=== PATIENT | female | born 1940 | race Caucasian/White ===

== ENCOUNTER 2025-07-18 08:17 | Outpatient (AMB) | payer OTHER, SELFPAY ==
--- NOTE | 2025-07-18 08:20 | MHC.PC.OV ---
Vital Signs 07/18/25 08:22 Height 5 ft 2 in Weight 123 lb BMI 22.5 BP 134/76 Blood Pressure Location Lt brachial Position Sitting Respiration 17 Pulse 56 Pulse Source Pulse Oximeter Temp 97.6 F Temp Source Oral Pulse Oximetry (%) 95 Oxygen Delivery Method Room Air Intake Visit Reasons: New pt visit Intake Note: Pt is here today for New patient visit. Allergies amlodipine (From [facility]) Allergy (Verified 07/18/25 08:24) swelling in legs Medication List - Last Reconciled 07/18/25 by Jeri Parsons MD albuterol sulfate 90 mcg/actuation (Ventolin HFA) 2 puffs inhalation Q6H PRN alendronate 70 mg PO QWEEK aspirin 81 mg PO DAILY azelastine-fluticasone 137-50 mcg/spray 1 spray intranasal BID cetirizine (Zyrtec) 10 mg PO DAILY PRN cyclosporine 50 mg PO DAILY estradiol 0.01%(0.1mg/gram) peasize to urethra vaginally daily; folic acid 3 mg PO DAILY losartan 12.5 mg PO DAILY methotrexate (PF) (Rasuvo (PF)) 25 mg subcut QWEEK metoprolol tartrate 25 mg PO DAILY nitroglycerin 0.4 mg sublingual Q5M PRN pravastatin 20 mg PO BEDTIME tolterodine ER 4 mg PO DAILY vitamin B complex 1 tab PO DAILY [vitamin K2 and Vitamin D PO] Tobacco use date assessed: 07/18/25 Fall risk assessment: No Falls in past year Last assessed Fall Risk: 07/18/25 Dental Screening Dental Screen Date: 07/18/25 Did you have a dental visit in the last 12 months?: Yes Did you have a dental problem in the last 6 months where you did not have access to dental care?: No Was dental information given to patient?: Patient has dentist HPI New pt visit HPI Details Patient presents for new patient visit. Past medical history includes hypertension hyperlipidemia coronary artery disease, s/p 2 stents placement in 2022, established with Cardiology. Patient has been physically active hiking 5 times a week with [employer] and denies chest pain shortness or breath palpitations PND orthopnea PFSH Medical History Allergies Hx of mammogram Pemphigoid Annual physical exam Asthma CAD (coronary artery disease) Surgical History (Updated 07/18/25 @ 08:35 by KARTHIK Kennedy) Hx of left knee surgery Hx of eye surgery Hx of cataract surgery Family History (Updated 07/18/25 @ 08:36 by KARTHIK Kennedy) Father Hypertension Mother Hypertension Social History (Updated 07/18/25 @ 09:08 by Jeri Parsons MD) Household Members Other:: single, retired teacher, hikes 3 x a week, sister in [place], [facility] Tobacco Use Status: Never used Tobacco e-Cigarette/Vaping Use: Never Used service: No Current occupational status: retired Cognitive needs: No Hearing needs: No Vision needs: No Questionnaire PHQ-9 Over the last 2 weeks, how often have you been bothered by any of the following problems? 1. Little interest or pleasure in doing things: not at all 2. Feeling down, depressed, or hopeless: not at all 3. Trouble falling or staying asleep, or sleeping too much: not at all 4. Feeling tired or having little energy: not at all 5. Poor appetite or overeating: not at all 6. Feeling bad about yourself - or that you are a failure or have let yourself or your family down: not at all 7. Trouble concentrating on things, such as reading the newspaper or watching television: not at all 8. Moving or speaking so slowly that other people could have noticed. Or the opposite - being so fidgety or restless that you have been moving around a lot more than usual: not at all 9. Thoughts that you would be better off or of hurting yourself in some way: not at all Total score: 0 Depression Screening Interpretation: Negative Depression Screening Done: Yes 48250 - PHQ-9 Billing: Yes Source: Developed by Drs. Vlad Mckeon, Aisha Carlton, Aman Avitia and colleagues, with an educational jenise from [employer]. Thrive Questionnaire I am a: Patient What is your living situation today?: I have a steady place to live Within the past 12 months, did the food you bought not last and you didn't have the money to get more?: Never true Within the past 12 months, did you worry whether your food would run out before you got money to buy more?: Never true Do you have trouble paying for medicines?: No Do you have trouble getting transportation to medical appointments?: No Do you have trouble paying your heating and electricity bill?: No Do you have trouble taking care of your child, family member or friend?: No Do you have trouble with day-to-day activities such as bathing, preparing meals, shopping, managing finances, etc.?: No Are you currently unemployed and looking for a job?: No Are you interested in more education?: No Please select the resources that you would like help with: None Currently or been in a relationship where the following occur: No concerns reported THRIVE Score: 0 AUDIT C Alcohol Use Questionnaire (AUDIT-C) 1. How often do you have a drink containing alcohol?: 2-3 times a week 2. How many drinks containing alcohol do you have on a typical day when you are drinking?: 1 or 2 3. How often do you have six or more drinks on one occasion?: Never Total Score: 3 ALBA-7 AMB Questionnaire ALBA-7 Feeling nervous, anxious, or on edge: 0 = Not at all Not being able to stop or control worryin = Not at all Worrying too much about different things: 0 = Not at all Trouble relaxin = Not at all Being so restless that it is hard to sit still: 0 = Not at all Becoming easily annoyed or irritable: 0 = Not at all Feeling afraid as if something awful might happen: 0 = Not at all Total ALBA-7 score (0-4 normal; 5-9 mild; 10-14 moderate; 15-21 severe): 0 Source: Developed by Drs. Vlad Mckeon, Aisha Carlton, Aman Avitia and colleagues, with an educational jenise from [employer]. Review of Systems Const All systems reviewed & are unremarkable except as noted in HPI and below Eyes Reports no additional complaints ENT Reports no additional complaints Card Reports no additional complaints Resp Reports no additional complaints GI Reports no additional complaints Reports no additional complaints Physical exam (Primary Care) Vital Signs: Last Vital Signs Temp 97.6 F 07/18/25 08:22 Pulse 56 07/18/25 08:22 Resp 17 07/18/25 08:22 BP 134/76 07/18/25 08:22 Pulse Ox 95 07/18/25 08:22 Oxygen Delivery Method Room Air 07/18/25 08:22 BMI result Body Mass Index 22.5 Tobacco/Smoking Status: Tobacco use Status Tobacco use date assessed 07/18/25 07/18/25 08:41 Patient Tobacco Use Status Never used Tobacco 07/18/25 08:41 e-Cigarette/Vaping Use Never Used 07/18/25 08:41 PHQ-9: PHQ-9 Score PHQ-9: Total score 0 07/18/25 08:22 Depression Screening Interpretation: Negative Currently or been in a relationship where the following occur: No concerns reported Const General: no acute distress HENMT Head: Yes normal to inspection Face and sinus: Yes normal facial exam Eyes General: appearance normal, both eyes and all related structures Resp Effort & Inspection: normal respiratory effort Auscultation: clear to auscultation bilaterally Cardio Rhythm: regular rhythm Heart sounds: S1 normal heart sound present and S2 normal heart sound present GI Inspection: Yes normal to inspection Palpation (GI): Soft to palpation Percussion: Yes normal to percussion Auscultation: normal bowel sounds Coding Level of Care Code New Pt Level 4 (74409) Diagnoses CAD (coronary artery disease) I25.10 Vitamin D deficiency E55.9 HTN (hypertension) I10 Hyperlipidemia E78.5 Asthma J45.909 Annual physical exam Z00.00 Additional Codes PHQ-9 - 06822 - PHQ-9 Billing: Yes ([id number]) Assessment & Plan Assessment & Plan (1) CAD (coronary artery disease): Comment: s/p 2 stents 2022 [facility] RCA, f/u Dr. Hoff , Atrovastatin changed to Pravastatin interaction with Methotrexate and Cyclosporin Code(s): I25.10 - Atherosclerotic heart disease of [place] coronary artery without angina pectoris Category: Medical Plan: Continue statin metoprolol follow-up with Cardiology (2) Vitamin D deficiency: Code(s): E55.9 - Vitamin D deficiency, unspecified Category: Medical Plan: Continue vitamin-D supplement (3) HTN (hypertension): Code(s): I10 - Essential (primary) hypertension Category: Medical Plan: Continue losartan (4) Hyperlipidemia: Code(s): E78.5 - Hyperlipidemia, unspecified Category: Medical Plan: Continue statin (5) Asthma: Code(s): J45.909 - Unspecified asthma, uncomplicated Category: Medical Plan: PRN albuterol (6) Annual physical exam: Comment: DEXA 02/2021 osteoporosis on Alendronate started in 2021, Code(s): Z00.00 - Encounter for general adult medical examination without abnormal findings Category: Medical Plan: Continue alendronate patient will obtain records including her most recent DEXA scan. She will follow-up in 2 months with a fasting labs before Orders: Orders TSH reflex Free T4 2 Months E55.9 - Vitamin D deficiency, unspecified, E78.5 - Hyperlipidemia, unspecified, I10 - Essential (primary) hypertension, I25.10 - Atherosclerotic heart disease of [place] coronary artery without angina pectoris UA w Microscopic 2 Months E55.9 - Vitamin D deficiency, unspecified, E78.5 - Hyperlipidemia, unspecified, I10 - Essential (primary) hypertension, I25.10 - Atherosclerotic heart disease of [place] coronary artery without angina pectoris Comprehensive [place]. Panel Fast 2 Months E55.9 - Vitamin D deficiency, unspecified, E78.5 - Hyperlipidemia, unspecified, I10 - Essential (primary) hypertension, I25.10 - Atherosclerotic heart disease of [place] coronary artery without angina pectoris Complete Blood Count Auto Diff 2 Months E55.9 - Vitamin D deficiency, unspecified, E78.5 - Hyperlipidemia, unspecified, I10 - Essential (primary) hypertension, I25.10 - Atherosclerotic heart disease of [place] coronary artery without angina pectoris Lipid Panel 2 Months E55.9 - Vitamin D deficiency, unspecified, E78.5 - Hyperlipidemia, unspecified, I10 - Essential (primary) hypertension, I25.10 - Atherosclerotic heart disease of [place] coronary artery without angina pectoris Vitamin D 25-OH Total 2 Months E55.9 - Vitamin D deficiency, unspecified, E78.5 - Hyperlipidemia, unspecified, I10 - Essential (primary) hypertension, I25.10 - Atherosclerotic heart disease of [place] coronary artery without angina pectoris Medications: New estradiol 0.01%(0.1mg/gram) peasize to urethra vaginally daily; 42.5 grams 3RF alendronate 70 mg PO QWEEK 14 tabs 3RF alendronate 70 mg PO QWEEK 14 tabs 3RF
[2025-07-18 08:22] VITALS: BP 134/76; PULSE 56; RESP 17; TEMP 36.4; O2SAT 95; BMI 22.5
== END 2025-07-18 15:02 | disposition home or self-care (01) ==
LOC: HO.HMCC 08:18
PROVIDERS: PCP Internal Medicine; Visit Provider Internal Medicine
DX: I25.10 Atherosclerotic heart disease of native coronary artery without angina pectoris (principal); E55.9 Vitamin D deficiency, unspecified; I10 Essential (primary) hypertension; E78.5 Hyperlipidemia, unspecified; J45.909 Unspecified asthma, uncomplicated; Z00.00 Encounter for general adult medical examination without abnormal findings

== ENCOUNTER → 2025-07-18 08:17 | Outpatient (BNVA) | payer OTHER, SELFPAY | PROVIDERS: PCP Internal Medicine; Visit Provider Internal Medicine | DX: Z13.31 Encounter for screening for depression (principal) | CPT/HCPCS: 96127 ==